=== PATIENT | male | born 1975 | race Caucasian/White ===

== ENCOUNTER 2018-03-20 21:28 | Inpatient (IN) | payer OTHER ==
[~2018-03-20] VITALS: Ht 170.2 cm; Wt 69.4 kg
[~2018-03-20 21:28] MED LIST: DIPH50TA
[2018-03-20 21:31] VITALS: BP 117/79; PULSE 87; RESP 18; TEMP 98.9
[2018-03-20] MEDS ORDERED: ACETAMINOPHEN/HYDROcodone 325 MG/5 MG TAB PO ONE (21:45)
--- NOTE | 2018-03-20 21:50 | PD ---
HPI Chief Complaint: Ankle injury Time Seen by Provider: 21:35 Travel History International Travel<30 days: No Contact w/Intl Traveler<30days: No Traveled to known affect area: No History of Present Illness HPI 42-year-old male patient presents to the ER today because he was trying to move heavy objects and rolled his ankle on the right, is having ankle pain and swelling. He denies any other issues or injuries. He is unable to bear weight on the right ankle due to pain. Pain is rated at 10 out of 10. Modifying Factors: None Associated Signs & Symptoms: Right ankle injury Risk Factors: None PFSH Past Medical History Medical History: Denies Significant Hx Cirrhosis: No Developmental Delay: No Diminished Hearing: No Tetanus Vaccination: Never Vaccinated Influenza Vaccination: No ?: Not Past Surgical History Other Surgery: Yes (facial reconstruction due to trauma) Social History Alcohol Use: Yes (daily) Tobacco Use: Yes (1/2 ppd) Substance Use: No Allergies-Medications (Allergen,Severity, Reaction): Coded Allergies: No Known Allergies (Verified Allergy, Mild, 03/20/18) Reported Meds & Prescriptions Reported Meds & Active Scripts Active Review of Systems Except as stated in HPI: all other systems reviewed are Neg Physical Exam Narrative GENERAL: Well-nourished, well-developed well-developed middle-age male patient in moderate distress. Awake and oriented 3. SKIN: Focused skin assessment warm/dry. HEAD: Normocephalic. EYES: No scleral icterus. No injection or drainage. NECK: Supple, trachea midline. No JVD or lymphadenopathy. Right ankle: There is notable edema especially over the lateral malleolus, tender to palpation in that area as well. No midfoot tenderness or lateral foot tenderness. Nontender to palpation at the knee area. Data Data Last Documented VS Vital Signs Date Time Temp Pulse Resp B/P (MAP) Pulse Ox O2 Delivery O2 Flow Rate FiO2 03/20/18 21:31 98.9 87 18 117/79 (92) Orders Orders Acetamin-Hydrocod 325-5 Mg (Faxon 5-325 (03/20/18 21:45) Ankle, Complete (Lit8ttf) (03/20/18 21:40) Complete Blood Count With Diff (03/20/18 22:08) Basic Metabolic Panel (Bmp) (03/20/18 22:08) Splint Or Brace Apply/Monitor (03/20/18 22:20) Consult Orthopedic (03/20/18 ) Admit Order (Ed Use Only) (03/20/18 22:23) Hydromorphone Pf Inj (Dilaudid Pf Inj) (03/20/18 22:30) Ondansetron Inj (Zofran Inj) (03/20/18 22:30) Labs Laboratory Tests Test 03/20/18 22:20 [facility] Medical Decision Making Medical Screen Exam Complete: Yes Emergency Medical Condition: Yes Medical Record Reviewed: Yes Interpretation(s) Last 24 hours Impressions Ankle X-Ray 03/20/182139 Signed Impressions: Service Date/Time: Tuesday, March 20, 2018 21:49 - CONCLUSION: 1. Acute oblique displaced fracture of the distal tibia metadiaphysis with approximately 6 mm lateral displacement of the distal fragment. 2. Acute oblique fracture of the distal fibular metaphysis with 4 mm of lateral displacement of the distal fragment. Jaden Mccormack MD Differential Diagnosis Ankle fracture versus ankle sprain Narrative Course Mildly displaced tib-fib fracture identified. Case was discussed with Dr. Dorman who would like the patient to be medically admitted the main hospital with consult to Dr. Rivera. Miguel splint placed. Case is discussed with Dr. Husain for admission for further treatment. Diagnosis Primary Impression: Fracture of distal end of tibia with fibula Admitting Information Admitting Physician Requests: Admit Lance Norton MD Mar 20, 2018 21:50
--- NOTE | 2018-03-20 22:05 | RADRPT ---
EXAM DATE/TIME: 03/20/2018 21:49 [facility] COMPARISON: No previous studies available for comparison. INDICATIONS : Right ankle pain after falling while moving music equipment. MEDICAL HISTORY : None. SURGICAL HISTORY : None. ENCOUNTER: Initial ACUITY: 1 day PAIN SCORE: 8/10 LOCATION: Right ankle. FINDINGS: 4 views of the right ankle demonstrate an oblique displaced fracture of the distal tibial diaphysis w ith 6 mm of lateral displacement of the distal fragment. Ankle mortise is intact. There is an oblique minimally displaced fracture of the distal fibula with 4 mm of lateral displacement of the distal fr agment. There is lateral ankle soft tissue swelling. Proximal tibia and fibula are intact. No radiopa que foreign body is seen. CONCLUSION: 1. Acute oblique displaced fracture of the distal tibia metadiaphysis with approximately 6 mm lateral displacement of the distal fragment. 2. Acute oblique fracture of the distal fibular metaphysis with 4 mm of lateral displacement of the d istal fragment. Jaden Mccormack MD on March 20, 2018 at 21:59 Board Certified Radiologist. This report was verified electronically.
[2018-03-20 22:25] LABS: AUTOMATED NEUTROPHIL # 5.4 TH/MM3 (1.8-7.7); BASOPHIL # 0.1 TH/MM3 (0-0.2); BASOPHIL % 0.7 % (0.0-2.0); EOSINOPHIL # 0.3 TH/MM3 (0-0.4); EOSINOPHIL % 2.9 % (0.0-4.0); HEMATOCRIT 46.2 % (39.0-51.0); HEMOGLOBIN 16.4 GM/DL (13.0-17.0); LYMPH % 27.7 % (9.0-44.0); LYMPHOCYTE # 2.5 TH/MM3 (1.0-4.8); MEAN CELL VOLUME 92.9 FL (80.0-100.0); MEAN CORPUSCULAR HEMOGLOBIN 32.9 PG (27.0-34.0); MEAN CORPUSCULAR HGB CONC 35.4 % (32.0-36.0); MEAN PLATELET VOLUME 7.2 FL (7.0-11.0); MONO % 6.8 % (0.0-8.0); MONOCYTE # 0.6 TH/MM3 (0-0.9); NEUT % 61.9 % (16.0-70.0); PLATELET COUNT 359 TH/MM3 (150-450); RED BLOOD COUNT 4.97 MIL/MM3 (4.50-5.90); RED CELL DISTRIBUTION WIDTH 12.9 % (11.6-17.2); WHITE BLOOD COUNT 8.9 TH/MM3 (4.0-11.0)
[2018-03-20] MEDS ORDERED: HYDROmorphone HCL PF 1 MG/ML VIAL IV PUSH ONE (22:30)
[2018-03-20] MEDS ORDERED: HYDROmorphone HCL PF 2 MG/ML VIAL IV PUSH ONE (22:30)
[2018-03-20] MEDS ORDERED: ONDANSETRON HCL 4 MG/2 ML VIAL IV PUSH ONE (22:30)
[2018-03-20 22:38] LABS: BICARBONATE 26.9 MEQ/L (21.0-32.0); CALCIUM 8.8 MG/DL (8.5-10.1)
[2018-03-20 22:42] LABS: CREATININE 0.87 MG/DL (0.60-1.30)
[2018-03-20] MEDS ORDERED: ACETAMINOPHEN 325 MG TAB PO PRN (22:45)
[2018-03-20] MEDS ORDERED: MAGNESIUM HYDROXIDE SUSP 30 ML CUP PO PRN (22:45)
[2018-03-20] MEDS ORDERED: LACTULOSE SYRUP 20 GM/30 ML CUP PO PRN (22:45)
[2018-03-20] MEDS ORDERED: NALOXONE HCL 0.4 MG/ML AMP IV PUSH PRN (22:45)
[2018-03-20] MEDS ORDERED: HYDROmorphone HCL PF 1 MG/ML VIAL IV PUSH PRN (22:45)
[2018-03-20] MEDS ORDERED: ONDANSETRON HCL 4 MG/2 ML VIAL IVP PRN (22:45)
[2018-03-20] MEDS ORDERED: SENNOSIDES 8.6 MG TAB PO PRN (22:45)
[2018-03-20] MEDS ORDERED: BISACODYL 10 MG SUPP RECTAL PRN (22:45)
[2018-03-20] MEDS: SODIUM CHLOR 0.9% 1000 ML INJ 1,000 ML IV SCH (23:23)
[2018-03-21 00:05] VITALS: BP 120/77; PULSE 83; RESP 16; TEMP 98.6; O2SAT 99
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
[2018-03-21] MEDS ORDERED: FLUMAZENIL 0.5 MG/5 ML VIAL IV PUSH PRN (01:00)
[2018-03-21] MEDS ORDERED: LORazepam 2 MG/ML VIAL IV PUSH PRN ×4 (01:00)
[2018-03-21] MEDS ORDERED: LORazepam 1 MG TAB PO ONE (01:00)
[2018-03-21] MEDS ORDERED: LORazepam 1 MG TAB PO PRN ×2 (01:00→21:00)
[2018-03-21] MEDS ORDERED: LORazepam 2 MG TAB PO PRN (01:00)
[2018-03-21] MEDS ORDERED: FAMOTIDINE 20 MG TAB PO ONE (01:00)
[2018-03-21] MEDS ORDERED: LORA-474 PO (01:18)
[2018-03-21] MEDS: SODIUM CHLOR 0.9% 1000 ML INJ 1,000 ML IV SCH ×2 (01:39→18:15)
[2018-03-21] MEDS: SODIUM CHLORIDE 0.9% FLUSH 10 ML FLUSH IV FLUSH PRN ×2 (01:47→05:19)
[2018-03-21] MEDS: HYDROmorphone HCL PF 2 MG/ML VIAL IV PRN ×2 (01:47→05:18)
[2018-03-21] MEDS ORDERED: POVIDONE IODINE 5% (ANTISEPSIS KIT) 4 APPLICATIONS EACH NARE PRN (02:00)
[2018-03-21] MEDS ORDERED: CHLORHEXIDINE GLUCONATE 2 % 1 PACK (2 CLOTHS) TOPICAL PRN (02:00)
[2018-03-21] MEDS ORDERED: SODIUM CHLORID 0.9% 500 ML IV PRN (02:00)
[2018-03-21] MEDS ORDERED: LACTATED RINGER'S 1000 ML IV PRN (02:00)
[2018-03-21 03:34] VITALS: BP 117/65; PULSE 90; RESP 16; TEMP 98.1; O2SAT 94
[2018-03-21 05:38] LABS: BASOPHIL # 0.1 TH/MM3 (0-0.2); BASOPHIL % 0.8 % (0.0-2.0); EOSINOPHIL # 0.2 TH/MM3 (0-0.4); HEMATOCRIT 41.8 % (39.0-51.0); HEMOGLOBIN 14.3 GM/DL (13.0-17.0); LYMPH % 25.7 % (9.0-44.0); LYMPHOCYTE # 2.7 TH/MM3 (1.0-4.8); MEAN CORPUSCULAR HEMOGLOBIN 32.2 PG (27.0-34.0); MEAN CORPUSCULAR HGB CONC 34.3 % (32.0-36.0); MEAN PLATELET VOLUME 7.7 FL (7.0-11.0); MONO % 5.7 % (0.0-8.0); MONOCYTE # 0.6 TH/MM3 (0-0.9); NEUT % 65.8 % (16.0-70.0); PLATELET COUNT 327 TH/MM3 (150-450); RED BLOOD COUNT 4.44 MIL/MM3 (4.50-5.90); RED CELL DISTRIBUTION WIDTH 13.2 % (11.6-17.2); WHITE BLOOD COUNT 10.6 TH/MM3 (4.0-11.0)
[2018-03-21 06:21] LABS: BICARBONATE 24.6 MEQ/L (21.0-32.0); CALCIUM 8.2 MG/DL (8.5-10.1); CREATININE 0.84 MG/DL (0.60-1.30)
[2018-03-21] MEDS ORDERED: ACETAMINOPHEN 1000 MG/100 ML 100 ML IV ONE (07:07)
[2018-03-21] MEDS ORDERED: VANCOMYCIN HCL 1000 MG VIAL ONE (07:31)
[2018-03-21] MEDS ORDERED: ceFAZolin INJ 1,000 MG VIAL ONE (07:32)
[2018-03-21] MEDS ORDERED: GENTAMICIN SULFATE 80 MG/2 ML VIAL ONE (07:32)
[2018-03-21 08:00] VITALS: BP 104/62; PULSE 86; RESP 18; TEMP 98; O2SAT 95
[2018-03-21] MEDS: DOCUSATE SODIUM 50 MG/SENNA 8.6 MG TAB PO SCH ×2 (09:00→21:02)
[2018-03-21] MEDS: SODIUM CHLORIDE 0.9% FLUSH 10 ML FLUSH IV FLUSH SCH ×2 (09:00→21:04)
[2018-03-21] MEDS: FOLIC ACID 1 MG TAB PO SCH (09:00)
[2018-03-21] MEDS: MULTIVITAMINS/MINERALS THERAPEUTIC TAB PO SCH (09:00)
[2018-03-21] MEDS: FAMOTIDINE 20 MG TAB PO SCH ×2 (09:00→21:02)
[2018-03-21] MEDS: THIAMINE HCL 100 MG TAB PO SCH (09:00)
--- NOTE | 2018-03-21 09:48 | PD.ORT.PN ---
Subjective Subjective Remarks Patient was at local [employer] last night when he was helping the band takedown speakers. He slipped and rolled his ankle and had immediate pain and was unable to ambulate. He was brought to the emergency room and was diagnosed with a bimalleolar ankle fracture Objective Vitals Vital Signs Date Time Temp Pulse Resp B/P (MAP) Pulse Ox O2 Delivery O2 Flow Rate FiO2 03/21/18 08:00 98.0 86 18 104/62 (76) 95 03/21/18 03:34 98.1 90 16 117/65 (82) 94 03/21/18 00:05 98.6 83 16 120/77 (91) 99 03/20/18 21:31 98.9 87 18 117/79 (92) I/O 03/20/18 03/20/18 03/20/18 03/21/18 03/21/18 03/21/18 07:00 15:00 23:00 07:00 15:00 23:00 Intake Total 353 ml Balance 353 ml Intake IV Total 353 ml Result Diagram: 03/21/18 0425 03/21/18 0425 Imaging Last 24 hours Impressions Ankle X-Ray 03/20/182139 Signed Impressions: Service Date/Time: Tuesday, March 20, 2018 21:49 - CONCLUSION: 1. Acute oblique displaced fracture of the distal tibia metadiaphysis with approximately 6 mm lateral displacement of the distal fragment. 2. Acute oblique fracture of the distal fibular metaphysis with 4 mm of lateral displacement of the distal fragment. Jaden Mccormack MD Objective Remarks Right lower extremity: Clean dry dressings intact with splint in place. He has no pain with hip or knee range of motion. Distally he has intact sensation in all his toes with good capillary refill Assessment & Plan Assessment and Plan Right bimalleolar ankle fracture N.p.o. Surgery this morning with Dr. Rivera Postoperatively he will remain nonweightbearing on the right lower extremity He will need to elevate the right lower extremity to decrease swelling Maintain splint until seen in office in 2 weeks Follow-up with Dr. Miguel MANE in 2 weeks Joe Seals Jr. Mar 21, 2018 09:48
[2018-03-21] MEDS ORDERED: WALKER WHEELS/F1 MIS (09:50)
[2018-03-21] MEDS ORDERED: HYDR-3583 PO (09:50)
[2018-03-21] MEDS ORDERED: Post-op Orders (for Pharmacy) XX ONE (10:00)
[2018-03-21] MEDS ORDERED: NALOXONE HCL 0.4 MG/ML AMP IV PUSH PRN (10:00)
[2018-03-21] MEDS ORDERED: ACETAMINOPHEN/HYDROcodone 325 MG/7.5 MG TAB PO PRN (10:00)
[2018-03-21] MEDS ORDERED: diphenhydrAMINE HCL 25 MG CAP PO PRN (10:00)
--- NOTE | 2018-03-21 10:04 | PD.OP ---
cc: Javier Petersen MD Operative Report Date of Surgery: Mar 21, 2018 Preoperative Diagnosis: Displaced right distal tibia and fibula fractures Postoperative Diagnosis: Procedure: Open reduction internal fixation right distal tibia, stress exam right ankle under fluoroscopy Anesthesia: General Surgeon: Javier Petersen Cloth Weaver(s): ARISTEO Olivarez PA-C The surgical procedure was assisted by my physician dairy and food laboratory assistant. My P.A. presence was necessary throughout this case for the manipulation and positioning of the surgical extremity. My P.A. was assisting me throughout the duration of this procedure. The skill set of a physician dairy and food laboratory assistant was medically necessary to complete this procedure. During the surgical case the cert pharmacy tech was working at the back table and the physician dairy and food laboratory assistant was directly assisting me. Operation and Findings: Implants used: Biomet Plan of activity: Nonweightbearing right leg Details of procedure: Informed consent was obtained for open reduction and internal fixation of right distal tibia fracture. Soft tissue was evaluated preoperatively and found to be suitable for surgery. Patient was brought to the operating placed on operating room table. Patient was given IV sedation and general anesthesia. Timeout procedure was performed, and IV antibiotics were given prior to procedure. The operative leg was now prepped with alcohol followed by Hibiclens and draped usual sterile fashion. A 3 inch incision was now made over the medial aspect of the ankle. Saphenous vein was protected. A full thickness flap was now elevated. The distal medial tibia was now exposed. Attention was now turned towards reduction. The metaphyseal fragments were reduced first. Traction was applied and fracture fragments were manipulated. excellent reduction was achieved. Fracture tenaculums were used to reduce fractures. Multiple K wires were used to hold provisional fixation. Fluoroscopy confirmed excellent alignment of fractures. A Biomet medial distal tibial plate was selected. Plate was placed percutaneously along the medial aspect of the distal tibia. Plate was provisionally held to bone with K wires. 2.7 cortical screws and 3.5 cortical screws were used to compress plate to bone. Multiple screws were placed into the shaft. Multiple 2.7 locking screws were placed into the distal segment. All screws were predrilled and premeasured for appropriate lengths. Final fluoroscopy revealed well aligned fracture with well-placed hardware. The wound was now thoroughly irrigated. Subcutaneous tissues closed with 3-0 Vicryl and skin was closed with 3-0 nylon. Next attention was turned towards the fibula. The ankle was stressed under fluoroscopy. There was no widening of the medial clear space or syndesmosis. The fibula was well aligned. The fibula will be treated closed. Sterile dressings were applied with Xeroform 4 x 4's soft roll and a well-padded splint.. Needle and sponge counts were correct. Patient was transferred to recovery room in stable condition. Javier Petersen MD Mar 21, 2018 10:04
[2018-03-21] MEDS ORDERED: DO NOT ADM ANY ANTICOAGULANT DRUGS PRN (10:27)
--- NOTE | 2018-03-21 10:31 | MB ---
cc: Javier Rivera MD DATE: 03/21/2018 REASON FOR CONSULTATION: Right distal tibia and fibula fractures CONSULTING PHYSICIAN: Dr. Meme Husain. HISTORY: Moody is a 42-year-old male who was working to carry a speaker upstairs. He lost his balance and fell. He twisted his right ankle and leg. He had immediate right ankle and leg pain. He was in the Emergency Room where x-rays revealed a displaced right distal tibia and fibula fractures. I have been consulted for definitive management of this injury. His only complaint is his right ankle. The pain is worse with movement. The pain is improved with rest. He denies dizziness, syncope or loss of consciousness. PAST MEDICAL HISTORY: Anxiety. PAST SURGICAL HISTORY: Facial reconstruction. MEDICATIONS: Ativan. ALLERGIES: NO KNOWN DRUG ALLERGIES. FAMILY HISTORY: Noncontributory. He denies any familial medical problems. SOCIAL HISTORY: The patient smokes a few cigarettes a day. He drinks wine daily. REVIEW OF SYSTEMS: The patient denies headache, visual changes, neck pain, chest pain, shortness of breath, abdominal pain, nausea, vomiting, recent weight loss, fevers or chills, numbness or tingling of extremities. He complains of right ankle pain. PHYSICAL EXAMINATION: GENERAL: The patient is a pleasant 42-year-old male. He is awake and alert. He is alert and oriented x3. He is in no acute distress. He appears well-developed, well-nourished. VITAL SIGNS: Temperature 98.0, pulse 86, respirations 18, blood pressure 104/62, O2 saturations 95% on room air. HEENT: Head: The patient is normocephalic. Pupils are equal. NECK: Soft, nontender. The trachea is in the midline. ABDOMEN: Soft, nontender, nondistended. EXTREMITIES: Examination of the bilateral upper extremities reveals no pain with shoulder, elbow or wrist motion. He has intact sensation in all fingers. He has good capillary refill in all fingers. Skin is intact. Examination of left leg reveals no pain with hip, knee or ankle motion. Skin is intact. Dorsalis pedis pulse is palpable. Sensation is intact. Examination of the right leg reveals no pain with hip or knee motion. He is tender to palpation over the distal tibia and ankle. He has pain with any ankle motion. He has mild swelling present. Dorsalis pedis pulses palpable. IMAGING: X-rays of the right tibia were reviewed. X-rays reveal a displaced right distal tibia and fibula fracture. LABORATORY DATA: The patient has a white blood cell count of 10.6, hematocrit 41, platelet count 327. BUN is 10 and creatinine is 0.84. IMPRESSION: 1. Right distal tibia and fibular fractures. 2. Smoking dependence. PLAN: Treatment options were discussed with the patient. At this point, I would recommend open reduction internal fixation of right distal tibia and possibly open reduction and internal fixation of the right distal fibula. The risks of surgery include bleeding, infection, injuries to arteries, nerves and blood vessels, nonunion, malunion, painful hardware as well as medical complications including blood clot, stroke, heart attack and . All questions were answered. I also explained to him that if the swelling increases, he may need a staged proceed with external fixation today and delayed open reduction and internal fixation. All questions were answered. A mid-level provider in my office, nurse practitioner or PA, may see this patient on a follow-up basis and continue to implement the objective of this plan including: Starting or adjusting medications, injections of muscle, tendon, bursa or joints, cast application, orthotic or brace application, physical therapy, further radiographic studies including x-ray, MRI, CT, ultrasounds or bone scan, vascular studies, neurologic studies, or other specialist consultations, and proceeding with surgical management as appropriate. MD SATNAM Montes/AV , 10:08 AM , 10:30 AM
[2018-03-21] MEDS ORDERED: *morphine SULFATE 8 MG/ML PERIprocedure ONLY ONE ×2 (10:33→10:41)
[2018-03-21] MEDS ORDERED: MIDAZOLAM HCL 2 MG/2 ML VIAL ONE (10:35)
[2018-03-21] MEDS ORDERED: *MEPERIDINE 25 MG INJ VIAL PERIprocedural Use ONLY ONE (10:49)
[2018-03-21] MEDS ORDERED: *HYDROmorphone PF 0.5 MG/0.5 ML PERIprocedure ONLY ONE ×2 (10:59→11:31)
[2018-03-21] MEDS: LACTATED RINGER'S 1000 ML INJ 1,000 ML IV SCH ×2 (11:00→19:59)
[2018-03-21] MEDS: CALCIUM/VITAMIN D 250 MG/125 U TAB PO SCH ×2 (11:47→16:07)
[2018-03-21] MEDS: ACETAMINOPHEN/HYDROcodone 325 MG/10 MG TAB PO PRN ×4 (11:47→21:02)
[2018-03-21 11:49] VITALS: BP 107/57; PULSE 90; RESP 18; TEMP 97.8; O2SAT 97
[2018-03-21] MEDS ORDERED: ONDANSETRON HCL 4 MG/2 ML VIAL IV ONE ×2 (12:00)
[2018-03-21] MEDS ORDERED: LIDOCAINE HCL 1% PF 5 ML SYRINGE OTHER ONE ×2 (12:00)
[2018-03-21] MEDS ORDERED: DEXAMETHASONE SOD PHOS 4 MG/ML VIAL IV ONE ×2 (12:00)
[2018-03-21] MEDS ORDERED: PROPOFOL 200 MG/20 ML AMP IV ONE ×2 (12:00)
--- NOTE | 2018-03-21 13:34 | RADRPT ---
EXAM DATE/TIME: 03/21/2018 09:49 [facility] COMPARISON: ANKLE RIGHT COMPLETE ([id number]), March 20, 2018, 21:49. INDICATIONS : ORIF right ankle fracture. MEDICAL HISTORY : Unobtainable. SURGICAL HISTORY : Unobtainable. ENCOUNTER: Subsequent ACUITY: 2 days PAIN SCORE: Non-responsive. LOCATION: Right ankle. FINDINGS: 4 coned down views of the right ankle were obtained using a matrix camera and demonstrate interval pl acement of a screw plate fixation device transfixing the distal tibial fracture. The fracture fragmen ts are now in anatomic alignment. The distal fibular fracture is in near anatomic alignment as well. There is adjacent soft tissue swelling. Ankle mortise is intact. CONCLUSION: Status post open a rigid internal fixation. Joe Amaral MD on March 21, 2018 at 13:30 Board Certified Radiologist. This report was verified electronically.
[2018-03-21] MEDS: KETOROLAC TROMETHAMINE 30 MG/ML (IVP) VIAL IVP SCH ×2 (14:47→22:12)
[2018-03-21 16:04] VITALS: BP 124/57; PULSE 92; RESP 18; TEMP 97.7; O2SAT 96
[2018-03-21] MEDS: ceFAZolin 2 GM PREMIX 50 ML IV SCH (16:07)
[2018-03-21 20:25] VITALS: BP 118/66; PULSE 73; RESP 16; TEMP 98; O2SAT 98
[2018-03-21] MEDS: VANCOMYCIN INJ 1,000 MG in SODIUM CHLOR 0.9% 250 ML INJ 250 ML IV SCH (21:03)
[2018-03-22] VITALS: BP 124/65; PULSE 72; RESP 16; TEMP 97.7; O2SAT 97
[2018-03-22] MEDS: HYDROmorphone HCL PF 2 MG/ML VIAL IV PRN (00:12)
[2018-03-22] MEDS: ceFAZolin 2 GM PREMIX 50 ML IV SCH ×2 (00:12→08:33)
[2018-03-22 04:25] VITALS: BP 118/71; PULSE 75; RESP 16; TEMP 97.6; O2SAT 98
[2018-03-22] MEDS: LACTATED RINGER'S 1000 ML INJ 1,000 ML IV SCH (05:59)
[2018-03-22] MEDS: ACETAMINOPHEN/HYDROcodone 325 MG/10 MG TAB PO PRN (06:32)
[2018-03-22] MEDS: KETOROLAC TROMETHAMINE 30 MG/ML (IVP) VIAL IVP SCH (06:34)
--- NOTE | 2018-03-22 06:46 | PD.ORT.PN ---
Subjective Subjective Remarks POD 1 s/p ORIF right distal tibia s/p right distal fibula fx doing well. reports pain but controlled. states out of bed with walker Objective Vitals Vital Signs Date Time Temp Pulse Resp B/P (MAP) Pulse Ox O2 Delivery O2 Flow Rate FiO2 03/22/18 04:25 97.6 75 16 118/71 (87) 98 03/22/18 00:00 97.7 72 16 124/65 (84) 97 03/21/18 20:25 98.0 73 16 118/66 (83) 98 03/21/18 16:04 97.7 92 18 124/57 (79) 96 03/21/18 11:49 97.8 90 18 107/57 (74) 97 03/21/18 11:15 98 12 120/58 (78) 98 Nasal Cannula 3 03/21/18 11:00 98 12 120/63 (82) 99 Nasal Cannula 3 03/21/18 10:45 93 15 116/59 (78) 100 Nasal Cannula 3 03/21/18 10:27 98.6 89 16 121/80 (94) 100 Nasal Cannula 2 03/21/18 08:00 98.0 86 18 104/62 (76) 95 I/O 03/21/18 03/21/18 03/21/18 03/22/18 03/22/18 03/22/18 07:00 15:00 23:00 07:00 15:00 23:00 Intake Total 353 ml 800 ml 480 ml Output Total 50 ml 500 ml Balance 353 ml 750 ml -20 ml Intake Oral 480 ml IV Total 353 ml Other 800 ml Output Urine Total 500 ml Estimated Blood Loss 50 ml # Voids 2 # Bowel Movements 0 Result Diagram: 03/21/18 0425 03/21/18 0425 Imaging Last 24 hours Impressions Ankle X-Ray 03/20/182139 Signed Impressions: Service Date/Time: Tuesday, March 20, 2018 21:49 - CONCLUSION: 1. Acute oblique displaced fracture of the distal tibia metadiaphysis with approximately 6 mm lateral displacement of the distal fragment. 2. Acute oblique fracture of the distal fibular metaphysis with 4 mm of lateral displacement of the distal fragment. Jaden Mccormack MD Objective Remarks Right lower extremity: Clean dry dressings intact with splint in place. He has no pain with hip or knee range of motion. Distally he has intact sensation in all his toes with good capillary refill Assessment & Plan Assessment and Plan 1) Right Distal Tibia Fracture s/p ORIF - POD 1 2) Right Distal Fibula Fx - nonop -NWB -elevate -maintain splint at all times -ortho clear for DC home today -pt to take OTC Aspirin 81mg BID for 4 weeks for DVT prophylaxis -f/u with [facility] or [facility] in 2 weeks Beka Campo/[employer] [facility] Mar 22, 2018 06:46
--- NOTE | 2018-03-22 07:45 | HHI.DCPOC ---
Discharge Care Plan Diagnosis: (1) Fracture of distal end of tibia with fibula (2) Alcohol abuse Goals to Promote Your Health * To prevent worsening of your condition and complications * To maintain your health at the optimal level Directions to Meet Your Goals Take your medications as prescribed Follow your dietary instruction Follow activity as directed Keep your appointments as scheduled Take your immunizations and boosters as scheduled If your symptoms worsen call your PCP, if no PCP go to Urgent Care Center or Emergency Room Smoking is Dangerous to Your Health. Avoid second hand smoke Call the 24-hour hour crisis hotline for domestic abuse at Kath Ball MD Mar 22, 2018 07:45
--- NOTE | 2018-03-22 07:46 | HHI.PR ---
Subjective Remarks Patient reports he is feeling okay. Pain is controlled. Anxious to go home. Objective Vitals Vital Signs Date Time Temp Pulse Resp B/P (MAP) Pulse Ox O2 Delivery O2 Flow Rate FiO2 03/22/18 04:25 97.6 75 16 118/71 (87) 98 03/22/18 00:00 97.7 72 16 124/65 (84) 97 03/21/18 20:25 98.0 73 16 118/66 (83) 98 03/21/18 16:04 97.7 92 18 124/57 (79) 96 03/21/18 11:49 97.8 90 18 107/57 (74) 97 03/21/18 11:15 98 12 120/58 (78) 98 Nasal Cannula 3 03/21/18 11:00 98 12 120/63 (82) 99 Nasal Cannula 3 03/21/18 10:45 93 15 116/59 (78) 100 Nasal Cannula 3 03/21/18 10:27 98.6 89 16 121/80 (94) 100 Nasal Cannula 2 03/21/18 08:00 98.0 86 18 104/62 (76) 95 I/O 03/21/18 03/21/18 03/21/18 03/22/18 03/22/18 03/22/18 07:00 15:00 23:00 07:00 15:00 23:00 Intake Total 353 ml 800 ml 480 ml 720 ml Output Total 50 ml 500 ml Balance 353 ml 750 ml -20 ml 720 ml Intake Oral 480 ml 720 ml IV Total 353 ml Other 800 ml Output Urine Total 500 ml Estimated Blood Loss 50 ml # Voids 2 3 # Bowel Movements 0 0 Result Diagram: 03/21/18 0425 03/21/18 0425 Objective Remarks GENERAL: This is a well-nourished, well-developed patient, in no apparent distress. CARDIOVASCULAR: Normal rate and regular rhythm without murmurs, gallops, or rubs. RESPIRATORY: Good respiratory efforts. Breath sounds equal and clear to auscultation bilaterally. GASTROINTESTINAL: Abdomen soft, non-tender, non-distended. Normal active bowel sounds MUSCULOSKELETAL: Right lower extremity splinted. Neurovascularly intact at the toes. NEURO: Alert & Oriented x4 to person, place, time, situation. Moves all ext x4 PSYCH: Appropriate mood and affect. Procedures 1) Right Distal Tibia Fracture s/p ORIF 2) Right Distal Fibula Fx - nonop A/P Problem List: (1) Fracture of distal end of tibia with fibula ICD Code: S82.309A - Unspecified fracture of lower end of unspecified tibia, initial encounter for closed fracture; S82.839A - Other fracture of upper and lower end of unspecified fibula, initial encounter for closed fracture Status: Acute Assessment and Plan 42 y/o male with no significant medical history who presented to the ED in [place] on 03/20/18 after suffering from turning over on his ankle while carrying a speaker up some stairs. He was found to have an acute fracture of the distal tibia and fibula. He was transferred to [facility] under the hospitalist service and ORIF in a.m. with Dr. Rivera of orthopedics. Distal Tibia and Fibula Fracture -Patient underwent ORIF of Right Distal Tibia Fracture. Right Distal Fibula Fx - nonop -Pain control. Follow-up outpatient with orthopedics. [id number] aspirin for DVT prophylaxis per orthopedics. Daily alcohol use - [facility] protocol - The patient was counseled to quit. He has no plans to quit at this point. Discharge Planning Discharge home in good condition Meds: Per med rec Diet: Regular Follow-up with: Orthopedics Activity: Per Orthopedics Problem Qualifiers (1) Fracture of distal end of tibia with fibula: Qualified Codes: S82.831A - Other fracture of upper and lower end of right fibula, initial encounter for closed fracture; S82.301A - Unspecified fracture of lower end of right tibia, initial encounter for closed fracture Kath Ball MD Mar 22, 2018 07:46
[2018-03-22 07:52] VITALS: BP 128/81; PULSE 75; RESP 19; TEMP 97.7; O2SAT 96
[2018-03-22] MEDS: FAMOTIDINE 20 MG TAB PO SCH (08:31)
[2018-03-22] MEDS: CALCIUM/VITAMIN D 250 MG/125 U TAB PO SCH (08:31)
[2018-03-22] MEDS: DOCUSATE SODIUM 50 MG/SENNA 8.6 MG TAB PO SCH (08:31)
[2018-03-22] MEDS: MULTIVITAMINS/MINERALS THERAPEUTIC TAB PO SCH (08:31)
[2018-03-22] MEDS: VANCOMYCIN INJ 1,000 MG in SODIUM CHLOR 0.9% 250 ML INJ 250 ML IV SCH (08:32)
[2018-03-22] MEDS: THIAMINE HCL 100 MG TAB PO SCH (08:32)
[2018-03-22] MEDS: FOLIC ACID 1 MG TAB PO SCH (08:32)
[2018-03-22] MEDS: SODIUM CHLORIDE 0.9% FLUSH 10 ML FLUSH IV FLUSH SCH (08:33)
[2018-03-22] MEDS ORDERED: ENOXAPARIN SODIUM 40 MG/0.4 ML SYRINGE SQ SCH (10:00)
== END 2018-03-22 10:53 | disposition home or self-care (01) | DRG 494 ==
LOC: PHEFT 21:28 → PHEDA 22:24 → N06A 03-21 00:04
PROVIDERS: ADMIT Family Medicine; ATTEND Family Medicine
PROC: 0QSG04Z Reposition Right Tibia with Internal Fixation Device, Open Approach (ICD-10-PCS; principal; 2018-03-21 08:50)
DX: S82.841A Displaced bimalleolar fracture of right lower leg, initial encounter for closed fracture (principal); F41.9 Anxiety disorder, unspecified; F10.10 Alcohol abuse, uncomplicated; F17.210 Nicotine dependence, cigarettes, uncomplicated; W01.0XXA Fall on same level from slipping, tripping and stumbling without subsequent striking against object, initial encounter
CPT/HCPCS: 73600; 73610; 76000; 80048; 85025; 94150; 99285; C1713; J0131; J0690; J1100; J1170; J1580; J1885; J2175; J2250; J2270; J2405; J3010; J3370; J7030; J7050; J7120